=== PATIENT | male | born 1990 | race Caucasian/White ===

== ENCOUNTER 2020-01-16 18:36 | Emergency (ER) | payer MEDICAID ==
[~2020-01-16] VITALS: Ht 177.8 cm; Wt 72.7 kg
[~2020-01-16 18:36] MED LIST: RISPERDAL 0.20.25 MG
[2020-01-16 18:41] VITALS: TEMP 98.1
[2020-01-16 19:09] LABS: BASO # 0.1 (0.0-0.2); BASO % 0.6 % (0.0-2.0); EOS # 0.1 (0.0-0.7); GRAN # 7.8 (1.4-6.5); GRAN % 66.9 % (42.2-75.2); HEMATOCRIT 41.6 % (42.0-52.0); HEMOGLOBIN 14.8 g/dl (13.5-18.0); LYMPH # 2.3 (1.2-3.4); LYMPH % 19.2 % (20.0-51.0); MEAN CELL VOLUME 84 fl (80.0-100.0); MEAN CORPUSCULAR HEMOGLOBIN 30 pg (27.0-31.0); MEAN CORPUSCULAR HGB CONC 36 g/dl (33.0-37.0); MEAN PLATELET VOLUME 9.7 fl (7.4-10.4); MONO # 1.4 (0.1-0.6); PLATELET COUNT 217 K/mm3 (130-400); RED BLOOD COUNT 4.94 M/mm3 (4.20-5.60); REDCELL DISTRIBUTION WIDTH-CV 12.2 % (11.5-14.5)
[2020-01-16 19:18] LABS: ANION GAP 15 mmol/L (7-16); BLOOD UREA NITROGEN 19 mg/dL (9-20); CALCIUM 9.8 mg/dL (8.4-10.2); CARBON DIOXIDE 18 mmol/L (22-30); CHLORIDE 100 mmol/L (98-107); CREATININE, serum 1.13 (0.66-1.25); GLUCOSE 106 mg/dL (74-106); POTASSIUM 3.5 mmol/L (3.4-5.0); SODIUM 133 mmol/L (137-145)
[2020-01-16 19:27] LABS: ALCOHOL(ethanol),MEDICAL < 10 mg/dL
[2020-01-17 00:18] LABS: TRICYCLIC ANTIDEPRESS URINE NEGATIVE
[2020-01-17 02:45] VITALS: BP 99/67; PULSE 74
== END 2020-01-17 02:45 | disposition home or self-care (01) ==
LOC: COL.ER 18:36
PROVIDERS: Emergency Medicine
DX: F23 Brief psychotic disorder (principal); F15.10 Other stimulant abuse, uncomplicated; F41.9 Anxiety disorder, unspecified
CPT/HCPCS: J1630; J2060; J7030

== ENCOUNTER 2020-04-06 02:43 | Emergency (ER) | payer MEDICAID ==
[~2020-04-06] VITALS: Ht 182.9 cm; Wt 95.5 kg
[2020-04-06 03:22] LABS: BASO % 0.7 % (0.0-2.0); EOS # 0.2 (0.0-0.7); EOS % 2.8 % (0-4.0); GRAN # 3.1 (1.4-6.5); GRAN % 50.6 % (42.2-75.2); HEMATOCRIT 40.6 % (42.0-52.0); LYMPH # 2.2 (1.2-3.4); MEAN CELL VOLUME 89 fl (80.0-100.0); MEAN CORPUSCULAR HEMOGLOBIN 31 pg (27.0-31.0); MEAN CORPUSCULAR HGB CONC 35 g/dl (33.0-37.0); MEAN PLATELET VOLUME 9.8 fl (7.4-10.4); MONO # 0.6 (0.1-0.6); MONO % 9.7 % (1.7-9.3); PLATELET COUNT 178 K/mm3 (130-400); RED BLOOD COUNT 4.56 M/mm3 (4.20-5.60); REDCELL DISTRIBUTION WIDTH-CV 13.3 % (11.5-14.5)
[2020-04-06 03:33] LABS: ACETAMINOPHEN < 10 ug/mL (10-30); ALANINE AMINOTRANSFERASE 13 U/L (4-49); ALBUMIN 4.1 gm/dL (3.5-5.0); ALCOHOL(ethanol),MEDICAL < 10 mg/dL; ALKALINE PHOSPHATASE 76 U/L (50-136); ANION GAP 7 mmol/L (7-16); AST,SGOT 20 U/L (15-37); BILIRUBIN,TOTAL 0.8 mg/dL (0.0-1.0); BLOOD UREA NITROGEN 11 mg/dL (9-20); CALCIUM 8.6 mg/dL (8.4-10.2); CARBON DIOXIDE 24 mmol/L (22-30); CHLORIDE 103 mmol/L (98-107); CREATININE, serum 0.77 (0.66-1.25); GLUCOSE 86 mg/dL (74-106); POTASSIUM 3.7 mmol/L (3.4-5.0); SALICYLATE < 1.0 mg/dL; SODIUM 133 mmol/L (137-145); TOTAL PROTEIN 6.7 gm/dL (6.4-8.2)
[2020-04-06 03:43] LABS: CREATINE KINASE 73 U/L (55-170)
[2020-04-06 04:02] LABS: HIV 1/2 Antibodies Non-Reactive; HIV-1p24 Antigen Non-Reactive
[2020-04-06 04:24] LABS: TRICYCLIC ANTIDEPRESS URINE NEGATIVE
[2020-04-06 05:12] LABS: COLLECTION METHOD CLEAN CATCH
[2020-04-06 05:17] LABS: PH 6 (5-8); SQUAMOUS EPITHELIAL None Seen /hpf; URINE APPEARANCE Clear; URINE BACTERIA None Seen /hpf; URINE BILIRUBIN Negative (NEGATIVE); URINE BLOOD Negative (NEGATIVE); URINE COLOR Colorless; URINE GLUCOSE Negative (NEGATIVE); URINE KETONE Negative (NEGATIVE); URINE LEUKOCYTE ESTERASE Negative (NEGATIVE); URINE NITRATE Negative (NEGATIVE); URINE PROTEIN(semi-quant) Negative (NEGATIVE); URINE RBC 0-2 /hpf; URINE UROBILINOGEN Negative (NEGATIVE)
[2020-04-06 05:47] VITALS: BP 118/64; PULSE 68; TEMP 97.2
== END 2020-04-06 06:06 | disposition home or self-care (01) ==
LOC: COL.ER 02:43
PROVIDERS: Emergency Medicine
DX: R53.83 Other fatigue (principal); F45.9 Somatoform disorder, unspecified; F17.210 Nicotine dependence, cigarettes, uncomplicated; F29 Unspecified psychosis not due to a substance or known physiological condition

== ENCOUNTER 2020-04-14 18:58 | Emergency (ER) | payer MEDICAID ==
[~2020-04-14] VITALS: Ht 190.5 cm; Wt 72.7 kg
[2020-04-14 18:58] VITALS: BP 133/87; PULSE 68; TEMP 98.8
== END 2020-04-14 19:45 | disposition left against medical advice (07) ==
LOC: COL.ER 18:58
DX: K63.9 Disease of intestine, unspecified (principal)